=== PATIENT | female | born 1990 | race Caucasian/White ===

== ENCOUNTER 2017-12-14 08:47 | Emergency (ER) | END 2017-12-14 10:43 | disposition home or self-care (01) ==

== ENCOUNTER 2018-06-23 15:42 | Emergency (ER) | END 2018-06-23 20:02 | disposition home or self-care (01) ==

== ENCOUNTER 2018-11-02 13:51 | Inpatient (IN) | payer MEDICAID ==
[~2018-11-02] VITALS: Ht 152.4 cm; Wt 61.7 kg
[~2018-11-02 13:51] MED LIST: ACET500C5 PO; BACITUD TOP; CEPH-443 PO; CYCL10TA7 PO; NAPR-985 PO
[2018-11-02 13:54] VITALS: Ht 152.4 cm; Wt 61.7 kg
[2018-11-02 14:11] VITALS: BP 109/63; PULSE 75; RESP 18
[2018-11-02] MEDS: LACTATED RINGER'S 500 ML IV SCH ×2 (14:29→19:25)
[2018-11-02] MEDS ORDERED: TERBUTALINE 1 MG/ML INJ SC ONE ×2 (14:30→17:00)
--- NOTE | 2018-11-02 21:26 | HP ---
Date/Time of Note Date/Time of Note DATE: 11/02/18 TIME: 21:20 OB - History Hx of Present Free Text/Dictation 28 years old 001 with single intrauterine at 30 weeks and 6 days complaining of vaginal pressure and abdominal pain. She states good movement. She denies nausea vomiting, shortness of breath, visual changes, chest pain, headache, vaginal bleeding or leakage of fluid Chief Complaint: Vaginal pressure and abdominal pain : 2 Para: 1 Spontaneous : 0 Therapeutic : 0 Care: Good Care Ultrasounds: Normal mid trimester US Obstetrical Complications: None Medical Complications: None Past Family/Social History * Past Medical, Surgical, Family and Obstetric Histories reviewed from chart. OB Admission Exam Vital Signs Vital Signs Vital Signs Date Temp Pulse Resp B/P (MAP) Pulse Ox O2 O2 Flow FiO2 Time Delivery Rate 11/02/18 98.3 75 18 109/63 14:11 (78) Physical Exam HEENT: WNL Heart: Rhythm Normal Lungs: Clear Abdomen: WNL Extremities: Normal Reflexes: Normal Cervical Dilatation: None Effacement: 0% Station: -3 Membranes: Intact Heart Rate: 130's Accelerations: Accelerations Present Decelerations: No Decelerations Varibility: Moderate Contractions on Admission: < 5 Minutes Apart Intensity: Mild OB Assessment/Plan Other plan: 28-year-old 2 para 1001 with single intrauterine at 30 weeks and 6 days with threatened labor. fibronectin performed which is negative, cervical length is 4 cm. Patient received 500 ml IV fluid bolus then 150 mL/h. She received terbutaline sub cutaneous x2. Though her fibro nectin is negative with normal cervical length, as she still has palpable uterine contraction and uterine irritability every 2-3 minutes she was admitted. - FHR: No sign of metabolic acidosis- Category I - Continuous EFM, toco - CBC, blood type and screen - Urinalysis within normal limits - Magnesium sulfate per protocol - Betamethasone 12 mg daily for 2 doses - Please see the orders - Obtain records. - Patient discussed with Dr. Lee who has agreed with above plan Past Medical, Surgical, Family and Obstetric Histories reviewed which are unremarkable JAIME SALAZAR Nov 02, 2018 21:26
[2018-11-02] MEDS ORDERED: MAGNESIUM SULFATE 4 GM/100 ML 100 ML IV ONE (22:00)
[2018-11-02] MEDS ORDERED: ACETAMINOPHEN 325 MG TAB PO PRN (22:00)
[2018-11-02] MEDS: BETAMET NA PHOS/AC(6 MG/ML) 2 ML INJ SYG IM SCH (23:16)
[2018-11-02] MEDS: MAGNESIUM SULFATE 20 GM/500 ML 500 ML IV SCH (23:49)
[2018-11-03] MEDS ORDERED: AL HYDROX/MG HYDROX/SIMETH 30 ML CUP PO PRN (00:30)
[2018-11-03] MEDS ORDERED: ONDANSETRON 4 MG INJ IV PRN (00:30)
--- NOTE | 2018-11-03 04:15 | TRIAGE ---
OB Triage Datetime Report Generated by CPN: 11/03/2018 04:15 Datetime: 11/03/2018 21:50 Stage of : Antepartum Datetime: 11/02/2018 23:31 Assessment Type: Admission Assessment Vaginal Bleeding: None Maternal Assessment Level of Consciousness: Fully Conscious DTR's/Clonus: DTRs 2+; No Clonus Headache: Denies Blurred Vision: No Respiratory Effort: Unlabored; Regular Rhythm; Equal Expansion Breath Sounds, Left: Clear and Equal Breath Sounds, Right: Clear and Equal Nausea/Vomiting: Denies RUQ Epigastric Pain: Denies Lower Extremities Edema: None Degree: None Upper Extremities Edema: None Degree: None Facial Edema: None Fall Risk Assessment History of Falling: (0) No Secondary Diagnosis: (0) No Ambulatory Aid: (0) Bedrest/Nurse Assist IV Therapy: (20) Yes Gait: (0) Normal/Bedrest/Immobile Mental Status: (0) Oriented to Own Ability Fall Score: 20 Fall Risk Score Definition: No Risk: No action required Labor Evaluation Frequency: 2-4 Duration (sec)2399: 40-60 Quality: Mild Pattern: Normal: <= 5 Contractions in 10 Minutes Resting Tone [place]: Relaxed Heart Rate FHR Baseline Rate: 140 Variability: Moderate 6-25 bpm Accelerations: 15X15 Decelerations: None Category: Category I Pain Assessment Pain Scale: 1 Pain Presence: Intermittent Pain Type: Cramping Pain Location: Abdomen Pain Goal: 2 Pain Assessment Comments: Membrane Status: Intact Datetime: 11/02/2018 22:25 Monitor Mode: External Quality: Mild Pattern: Normal: <= 5 Contractions in 10 Minutes Resting Tone [place]: Non Relaxed Heart Rate FHR Baseline Rate: 150 Monitor Mode: External US FHR Baseline Changes: No Baseline Change Variability: Moderate 6-25 bpm Accelerations: 15X15 Decelerations: None Category: Category I Datetime: 11/02/2018 22:00 Stage of : OB Triage Monitor Mode: External Quality: Mild Pattern: Normal: <= 5 Contractions in 10 Minutes Resting Tone [place]: Relaxed Heart Rate FHR Baseline Rate: 150 Monitor Mode: External US FHR Baseline Changes: No Baseline Change Variability: Moderate 6-25 bpm Accelerations: 15X15 Decelerations: None Category: Category I Pain Assessment Pain Scale: 1 Pain Presence: Intermittent Pain Type: Cramping Pain Location: Abdomen Datetime: 11/02/2018 21:58 Stage of : Antepartum Datetime: 11/02/2018 21:50 Stage of : Antepartum Labor Evaluation Frequency: 1.5-4.5 Monitor Mode: External Duration (sec)2399: 30-50 Quality: Mild Pattern: Normal: <= 5 Contractions in 10 Minutes Resting Tone [place]: Relaxed Heart Rate FHR Baseline Rate: 150 Monitor Mode: External US Variability: Moderate 6-25 bpm Accelerations: 15X15 Decelerations: None Category: Category I Datetime: 11/02/2018 21:36 Membrane Status: Intact Datetime: 11/02/2018 21:27 Vaginal Exam Dilatation (cms): 0.0 Effacement (%): 0 Station: -3 Exam By: HAILEE Vaginal Bleeding: None Cervix, Consistency: Moderate Cervix, Position: Midposition Datetime: 11/02/2018 20:50 Labor Evaluation Frequency: 1.5-4.5 Monitor Mode: External Duration (sec)2399: 30-50 Quality: Mild Pattern: Normal: <= 5 Contractions in 10 Minutes Resting Tone [place]: Relaxed Heart Rate FHR Baseline Rate: 150 Monitor Mode: External US Variability: Moderate 6-25 bpm Accelerations: 15X15 Decelerations: None Category: Category I Datetime: 11/02/2018 19:50 Labor Evaluation Frequency: 2-5 Monitor Mode: External Duration (sec)2399: 30-50 Quality: Mild Pattern: Normal: <= 5 Contractions in 10 Minutes Resting Tone [place]: Relaxed Heart Rate FHR Baseline Rate: 145 Monitor Mode: External US Variability: Moderate 6-25 bpm Accelerations: 15X15 Decelerations: None Category: Category I Pain Assessment Pain Scale: 0 Pain Presence: None/Denies Pain Type: N/A Pain Goal: 3 Pain Relief Measures: Comfort Measures Datetime: 11/02/2018 18:53 Labor Evaluation Frequency: 4-5 Monitor Mode: External Duration (sec)2399: 30-40 Pattern: Normal: <= 5 Contractions in 10 Minutes Resting Tone [place]: Relaxed Heart Rate FHR Baseline Rate: 145 Monitor Mode: External US Variability: Moderate 6-25 bpm Accelerations: 10X10 Decelerations: None Category: Category I Pain Assessment Pain Scale: 0 Pain Presence: None/Denies Pain Type: N/A Pain Goal: 3 Pain Relief Measures: Comfort Measures Datetime: 11/02/2018 17:51 Labor Evaluation Frequency: 0 Monitor Mode: External Pattern: Normal: <= 5 Contractions in 10 Minutes Resting Tone [place]: Relaxed Heart Rate FHR Baseline Rate: 150 Monitor Mode: External US Variability: Moderate 6-25 bpm Decelerations: None Category: Category I Pain Assessment Pain Scale: 0 Pain Presence: None/Denies Pain Type: N/A Pain Relief Measures: Comfort Measures Datetime: 11/02/2018 16:52 Labor Evaluation Frequency: 0 Monitor Mode: External Pattern: Normal: <= 5 Contractions in 10 Minutes Resting Tone [place]: Relaxed Heart Rate FHR Baseline Rate: 150 Monitor Mode: External US Variability: Moderate 6-25 bpm Accelerations: None Decelerations: None Category: Category I Pain Assessment Pain Scale: 0 Pain Presence: None/Denies Pain Type: N/A Pain Goal: 3 Pain Relief Measures: Comfort Measures Datetime: 11/02/2018 16:27 Stage of : OB Triage Datetime: 11/02/2018 16:25 Vaginal Exam Dilatation (cms): 0.0 Station: -3 Exam By: S MARIPOSA Vaginal Bleeding: None Cervix, Consistency: Soft Cervix, Position: Posterior Presentation 'A': Cephalic Datetime: 11/02/2018 15:56 Labor Evaluation Frequency: X1 Monitor Mode: External Duration (sec)2399: 30 Quality: Mild Pattern: Normal: <= 5 Contractions in 10 Minutes Resting Tone [place]: Relaxed Heart Rate FHR Baseline Rate: 135 Monitor Mode: External US Variability: Moderate 6-25 bpm Accelerations: 10X10 Decelerations: None Category: Category I Pain Assessment Pain Scale: 0 Pain Presence: None/Denies Pain Type: N/A Pain Goal: 3 Pain Relief Measures: Comfort Measures Datetime: 11/02/2018 14:58 Labor Evaluation Frequency: 0 Monitor Mode: External Quality: Mild Pattern: Normal: <= 5 Contractions in 10 Minutes Resting Tone [place]: Relaxed Heart Rate FHR Baseline Rate: 135 Monitor Mode: External US Variability: Moderate 6-25 bpm Accelerations: 10X10 Decelerations: None Category: Category I Pain Assessment Pain Scale: 0 Pain Presence: None/Denies Pain Type: N/A Pain Goal: 1 Pain Relief Measures: Comfort Measures Datetime: 11/02/2018 14:14 Stage of : OB Triage Datetime: 11/02/2018 14:03 Stage of : OB Triage Assessment Type: Triage Maternal Assessment Level of Consciousness: Fully Conscious DTR's/Clonus: DTRs 2+; No Clonus Headache: Denies Blurred Vision: No Respiratory Effort: Unlabored; Regular Rhythm; Equal Expansion Breath Sounds, Left: Clear and Equal Breath Sounds, Right: Clear and Equal Nausea/Vomiting: Denies RUQ Epigastric Pain: Denies Facial Edema: None Temperature Route: Axillary Fall Risk Assessment History of Falling: (0) No Secondary Diagnosis: (0) No Ambulatory Aid: (0) Bedrest/Nurse Assist IV Therapy: (0) No Gait: (0) Normal/Bedrest/Immobile Mental Status: (0) Oriented to Own Ability Fall Score: 0 Fall Risk Score Definition: No Risk: No action required Labor Evaluation Frequency: 2-3 Monitor Mode: External Duration (sec)2399: 40-50 Quality: Mild Pattern: Normal: <= 5 Contractions in 10 Minutes Resting Tone [place]: Relaxed Heart Rate FHR Baseline Rate: 145 Monitor Mode: External US Variability: Moderate 6-25 bpm Decelerations: None Category: Category I Pain Assessment Pain Scale: 1 Pain Presence: Intermittent Pain Type: Cramping Pain Location: Perineum; Right Groin Pain Goal: 3 Pain Relief Measures: Comfort Measures Datetime: 11/02/2018 14:01 EGA: 30.6 Arrived By: Ambulatory Datetime: 11/02/2018 14:00 Time of Arrival: 11/02/2018 13:47 Arrived By: Ambulatory Arrived From: Home Chief Complaint: C/O LOWER PERINEAL PAIN/PRESSURE X 5 DAYS, DENIES BLEEDING OR LEAKING OF FLUID Movement: Present Contractions: Occasional Contractions: IRREG Rupture of Membranes: Denies Vaginal Bleeding: None Vaginal Discharge: Denies Recent Sexual Intercouse: Denies Abdominal Trauma: Not Applicable Patient Complaints: Contractions; Cramping Time Provider Notified: 11/02/2018 14:14 Provider Notified: MARTIN Initial Plan: MONITOR, U/A C_s, FFN, VE, U/S FOR CL, BPP, EFW, TERB
[2018-11-03] MEDS: LACTATED RINGER'S 1,000 ML IV SCH ×2 (05:18→18:26)
[2018-11-03] MEDS: PRENATAL VITAMIN PO SCH (08:50)
[2018-11-03] MEDS: FERROUS SULFATE (EC) 325 MG TAB PO SCH (08:50)
[2018-11-03] MEDS: MAGNESIUM SULFATE 20 GM/500 ML 500 ML IV SCH ×3 (10:37→21:38)
--- NOTE | 2018-11-03 15:05 | PN ---
Date/Time of Note Date/Time of Note DATE: 11/03/18 TIME: 14:57 OB Subjective Subjective Subjective Date of admission: 11/02/18 Admission day# 2 Patient seen and examined. She states good movement. She denies nausea, vomiting, shortness of breath, chest pain, headache, visual changes, vaginal b leeding or LOF. OB Objective Objective Objective Vital Signs Date Temp Pulse Resp B/P (MAP) Pulse Ox O2 O2 Flow FiO2 Time Delivery Rate 11/02/18 98.3 75 18 109/63 14:11 (78) General: Patient appears well, alert and oriented, NAD, appropriate mood and affect ABD: gravid, soft, non-tender. Back: No CVA tenderness (B/L) LE: Mild edema. No clubbing, cyanosis, edema, thigh or calf tenderness bilaterally FHT: 135 bpm , moderate variability with acceleration, no deceleration-category I Contractions: Occasional Laboratory Tests Test 11/02/18 13:32 11/02/18 14:25 11/02/18 15:00 11/03/18 05:45 Urine Color YELLOW Urine Clarity CLOUDY Urine pH 8.0 Urine Specific 1.008 [place] Urine Ketones NEGATIVE mg/dL Urine Nitrite NEGATIVE mg/dL Urine Bilirubin NEGATIVE mg/dL Urine NEGATIVE mg/dL Urobilinogen Urine Leukocyte NEGATIVE Quentin/ul Esterase Urine 1 /HPF Microscopic RBC Urine 0 /HPF Microscopic WBC Urine Amorphous FEW /HPF Crystals Urine Bacteria FEW /HPF Urine Hemoglobin NEGATIVE mg/dL Urine Glucose NEGATIVE mg/dL Urine Total NEGATIVE mg/dl Protein NEGATIVE Fibronectin White Blood 8.5 10^3/ul Count Red Blood Count 3.86 10^6/ul Hemoglobin 11.4 g/dl Hematocrit 34.9 % Mean Corpuscular 90.4 fl Volume Mean Corpuscular 29.5 pg Hemoglobin Mean Corpuscular 32.7 g/dl Hemoglobin Rebecca nt Red Cell 12.6 % Distribution Width Platelet Count 237 10^3/UL Mean Platelet 8.8 fl Volume Immature 1.800 % Granulocytes % Neutrophils % 67.6 % Lymphocytes % 23.1 % Monocytes % 6.2 % Eosinophils % 0.6 % Basophils % 0.7 % Nucleated Red 0.0 /100WBC Blood Cells % Immature 0.150 10^3/ul Granulocytes # Neutrophils # 5.8 10^3/ul Lymphocytes # 2.0 10^3/ul Monocytes # 0.5 10^3/ul Eosinophils # 0.1 10^3/ul Basophils # 0.1 10^3/ul Nucleated Red 0.0 10^3/ul Blood Cells # Prothrombin Time 12.4 Sec Prothrombin Time 1.0 Ratio INR 0.91 International Normalized Ratio Activated 27.5 Sec Partial Thrombop last Time Sodium Level 136 mmol/L Potassium Level 2.7 mmol/L Chloride Level 101 mmol/L Carbon Dioxide 25 mmol/L Level Anion Gap 10 Blood Urea 5 mg/dl Nitrogen Creatinine 0.35 mg/dl Est Glomerular > 60 mL/min Filtrat Rate mL/min Glucose Level 84 mg/dl Calcium Level 9.3 mg/dl Total Bilirubin 0.2 mg/dl Direct Bilirubin 0.00 mg/dl Indirect 0.2 mg/dl Bilirubin Aspartate Amino 22 IU/L Transf (AST/SGOT ) Alanine 26 IU/L Aminotransferase (ALT/SGPT) Alkaline 77 IU/L Phosphatase Total Protein 6.7 g/dl Albumin 3.7 g/dl Globulin 3.00 g/dl Albumin/Globulin 1.23 Ratio Magnesium Level 5.2 mg/dl Test 11/03/18 07:41 11/03/18 12:01 Lab Scanned REFERENCE Report LAB [id number] Magnesium Level 5.1 mg/dl OB Assessment/Plan Other plan: 28-year-old 2 para 1001 with single intrauterine at 30 weeks and 6 days with threatened labor. - FHR: No sign of metabolic acidosis- Category I - Continuous EFM, toco - She has occasional uterine contraction - fibronectin: Negative - Cervical length is 4 cm - Urinalysis within normal limit, U/C is pending - Magnesium sulfate per protocol - Betamethasone 12 mg daily for 2 doses - Please see the orders - Obtain records - Neonatology and perinatology consult JAIME SALAZAR Nov 03, 2018 15:05
[2018-11-03] MEDS ORDERED: FER325 PO (19:57)
[2018-11-03] MEDS ORDERED: PREN-99 PO (19:57)
[2018-11-03] MEDS: LACTATED RINGER'S 500 ML IV SCH ×2 (19:58→19:59)
[2018-11-03] MEDS: PHENAZOPYRIDINE 200 MG TAB PO SCH (21:31)
[2018-11-03] MEDS ORDERED: POTASSIUM CHLORIDE (SR) 20 MEQ TAB PO ONE (23:04)
[2018-11-03] MEDS: BETAMET NA PHOS/AC(6 MG/ML) 2 ML INJ SYG IM SCH (23:10)
[2018-11-03] MEDS: POTASSIUM CHLORIDE 100 ML IVPB SCH (23:46)
[2018-11-04] MEDS: POTASSIUM CHLORIDE 100 ML IVPB SCH (04:44)
[2018-11-04] MEDS: LACTATED RINGER'S 1,000 ML IV SCH ×3 (04:57→19:08)
[2018-11-04] MEDS: FERROUS SULFATE (EC) 325 MG TAB PO SCH (09:02)
[2018-11-04] MEDS: PRENATAL VITAMIN PO SCH (09:02)
[2018-11-04] MEDS: PHENAZOPYRIDINE 200 MG TAB PO SCH ×2 (09:12→14:35)
[2018-11-04] MEDS: MAGNESIUM SULFATE 20 GM/500 ML 500 ML IV SCH (17:00)
[2018-11-05] MEDS: PHENAZOPYRIDINE 200 MG TAB PO SCH ×3 (00:18→13:35)
[2018-11-05] MEDS: LACTATED RINGER'S 1,000 ML IV SCH ×2 (02:59→10:56)
[2018-11-05] MEDS: PRENATAL VITAMIN PO SCH (08:53)
[2018-11-05] MEDS: FERROUS SULFATE (EC) 325 MG TAB PO SCH (08:53)
--- NOTE | 2018-11-05 14:53 | DS ---
Date/Time of Note Date/Time of Note DATE: 11/05/18 TIME: 14:49 Obstetrical Discharge Record Final Diagnosis Final Diagnosis: not delivered Other Final Diagnosis PTL 31w2d Complications Labor Augmentation: No Induction: No Tocolytics: Magnesium Sulfate, Other (BMZx2) Rupture of Membranes: No Condition on Discharge Physical Assessment Last Vitals: VSS afebrile Voiding: Yes (urine culture neg ) Bowel Movement: Yes Breast: Soft, non-tender Fundus: Other Calf Tenderness: No Patient Condition: Stable MIKKI BECERRIL MD Nov 05, 2018 14:53
--- NOTE | 2018-11-05 14:55 | PD.PPDC ---
[employer] Discharge Instruction Diagnosis [id number] Final Diagnosis: Mgdew2v IUP 31w2d Condition [id number] Patient Condition: [id number] Stable Activity/Restrictions [id number] Activity: [id number] Bedrest [id number] Restrictions: [id number] No Exercising No Lifting Nothing in the Vagina No [place] No Tampons, douche Follow-up Follow-up with Physician: 1, Week/Weeks Return to clinic for [id number] [employer] Instructions: [id number] Fever greater than 101 Comment: routine labor instructions MIKKI BECERRIL MD Nov 05, 2018 14:55
== END 2018-11-05 14:45 | disposition home or self-care (01) | DRG 833 ==
LOC: OBT 13:51 → L-D 13:51 → OBT 21:35
PROVIDERS: ADMIT Obstetrics & Gynecology; ATTEND Obstetrics & Gynecology
DX: O47.03 False labor before 37 completed weeks of gestation, third trimester (principal); Z3A.30 30 weeks gestation of pregnancy
CPT/HCPCS: 36415; 76815; 76817; 76818; 80053; 81001; 82731; 83735; 85025; 85610; 85730; 86592; 86850; 86900; 86901; 87086; 96360; 96361; 96372; G0463; J0702; J3105; J3475; J3480; J7120

== ENCOUNTER 2018-12-30 06:35 | Inpatient (IN) | payer MEDICAID ==
[2018-12-30] VITALS (7 sets, daily range): BP systolic 105–118; BP diastolic 50–68; PULSE 68–91; RESP 18; Ht 151.1 cm; Wt 67.3 kg
[~2018-12-30] VITALS: Ht 151.1 cm; Wt 67.3 kg
[~2018-12-30 06:35] MED LIST changes: -ACET500C5 PO; -BACITUD TOP; -CEPH-443 PO; -CYCL10TA7 PO; +FER325 PO; -NAPR-985 PO; +PREN-99 PO
[2018-12-30] MEDS ORDERED: LACTATED RINGER'S 1,000 ML IV SCH ×2 (07:20→07:40)
--- NOTE | 2018-12-30 07:27 | TRIAGE ---
OB Triage Datetime Report Generated by CPN: 12/30/2018 07:26 Datetime: 12/30/2018 07:25 Stage of : OB Triage Assessment Type: Triage Maternal Assessment Level of Consciousness: Fully Conscious DTR's/Clonus: DTRs 2+; No Clonus Headache: Denies Blurred Vision: No Respiratory Effort: Unlabored; Regular Rhythm; Equal Expansion Breath Sounds, Left: Clear and Equal Breath Sounds, Right: Clear and Equal Nausea/Vomiting: Denies RUQ Epigastric Pain: Denies Facial Edema: None Fall Risk Assessment History of Falling: (0) No Secondary Diagnosis: (0) No Ambulatory Aid: (0) Bedrest/Nurse Assist IV Therapy: (0) No Gait: (0) Normal/Bedrest/Immobile Mental Status: (0) Oriented to Own Ability Datetime: 12/30/2018 07:24 Time of Arrival: 12/30/2018 06:40 EGA: 39.1 Arrived By: Ambulatory Arrived From: Home Chief Complaint: UC'S Movement: Present Contractions: Regular Time Contractions Began: 12/30/2018 02:00 Rupture of Membranes: Denies Vaginal Bleeding: None Vaginal Discharge: Denies Recent Sexual Intercouse: Denies Abdominal Trauma: Not Applicable Patient Complaints: Contractions Time Provider Notified: 12/30/2018 07:25 Provider Notified: DR. SALAZAR Initial Plan: VE Datetime: 11/05/2018 14:45 Stage of : Antepartum Datetime: 11/05/2018 14:26 Time Provider Notified: 12/30/2018 07:24 Provider Notified: DR. SALAZAR Datetime: 11/05/2018 14:00 Stage of : Antepartum Labor Evaluation Frequency: 0 Monitor Mode: External Resting Tone [place] In[place]: Relaxed Contraction Comments: abdomen soft on palpation, pt denies uterine contraction pain at this time Heart Rate FHR Baseline Rate: 145 Monitor Mode: External US Variability: Moderate 6-25 bpm Accelerations: 15X15 Decelerations: None Category: Category I Pain Assessment Pain Scale: 0 Pain Presence: None/Denies Pain Type: N/A Datetime: 11/05/2018 13:00 Stage of : Antepartum Labor Evaluation Frequency: occasional Monitor Mode: External Duration (sec)2399: 50-80 Quality: Mild Resting Tone [place]: Relaxed Heart Rate FHR Baseline Rate: 145 Monitor Mode: External US Variability: Moderate 6-25 bpm Accelerations: 15X15 Decelerations: None Category: Category I Pain Assessment Pain Scale: 0 Pain Presence: None/Denies Pain Type: N/A Vaginal Exam Membrane Status: Intact Datetime: 11/05/2018 12:30 Comments: monitors applied Datetime: 11/05/2018 11:53 Stage of : Antepartum Labor Evaluation Frequency: x 1 Monitor Mode: External Duration (sec)2399: 90 Quality: Mild Resting Tone [place]: Relaxed Heart Rate FHR Baseline Rate: 145 Monitor Mode: External US Variability: Moderate 6-25 bpm Accelerations: 15X15 Decelerations: None Category: Category I Pain Assessment Pain Scale: 0 Pain Presence: None/Denies Pain Type: N/A Vaginal Exam Membrane Status: Intact Datetime: 11/05/2018 11:48 Comments: position change Datetime: 11/05/2018 11:00 Stage of : Antepartum Labor Evaluation Frequency: x 1 Monitor Mode: External Duration (sec)2399: 60 Quality: Mild Resting Tone [place]: Relaxed Heart Rate FHR Baseline Rate: 145 Monitor Mode: External US Variability: Moderate 6-25 bpm Accelerations: 15X15 Decelerations: None Category: Category I Pain Assessment Pain Scale: 0 Pain Presence: None/Denies Pain Type: N/A Vaginal Exam Membrane Status: Intact Datetime: 11/05/2018 10:00 Stage of : Antepartum Labor Evaluation Frequency: 0 Monitor Mode: External Resting Tone [place]: Relaxed Heart Rate FHR Baseline Rate: 140 Monitor Mode: External US Variability: Moderate 6-25 bpm Accelerations: 15X15 Decelerations: None Category: Category I Pain Assessment Pain Scale: 0 Pain Presence: None/Denies Pain Type: N/A Vaginal Exam Membrane Status: Intact Datetime: 11/05/2018 09:00 Stage of : Antepartum Labor Evaluation Frequency: 0 Monitor Mode: External Resting Tone [place]: Relaxed Contraction Comments: abdomen soft on palpation Heart Rate FHR Baseline Rate: 140 Monitor Mode: External US Variability: Moderate 6-25 bpm Accelerations: 10X10 Decelerations: None Category: Category I Pain Assessment Pain Scale: 0 Pain Presence: None/Denies Pain Type: N/A Vaginal Exam Membrane Status: Intact Datetime: 11/05/2018 08:15 Assessment Type: Ongoing Assessment Maternal Assessment Level of Consciousness: Fully Conscious DTR's/Clonus: DTRs 2+; No Clonus Headache: Denies Blurred Vision: No Respiratory Effort: Unlabored; Regular Rhythm; Equal Expansion Breath Sounds, Left: Clear and Equal Breath Sounds, Right: Clear and Equal Nausea/Vomiting: Denies RUQ Epigastric Pain: Denies Degree: None Upper Extremities Edema: None Degree: None Facial Edema: None Fall Risk Assessment History of Falling: (0) No Secondary Diagnosis: (0) No Ambulatory Aid: (0) Bedrest/Nurse Assist IV Therapy: (0) No Gait: (0) Normal/Bedrest/Immobile Mental Status: (0) Oriented to Own Ability Fall Score: 0 Fall Risk Score Definition: No Risk: No action required Datetime: 11/05/2018 08:00 Stage of : Antepartum Maternal Assessment Level of Consciousness: Fully Conscious DTR's/Clonus: No Clonus Headache: Denies Blurred Vision: No Nausea/Vomiting: Denies RUQ Epigastric Pain: Denies Facial Edema: None Labor Evaluation Frequency: X 1 Monitor Mode: External Duration (sec)2399: 60 Quality: Mild Resting Tone [place]: Relaxed Heart Rate FHR Baseline Rate: 135 Monitor Mode: External US Variability: Moderate 6-25 bpm Accelerations: 10X10 Decelerations: None Category: Category I Pain Presence: None/Denies Pain Type: N/A Pain Assessment Comments: PT DENIES FEELING UTERINE CONTRACTIONS AT THIS TIME Vaginal Exam Membrane Status: Intact Datetime: 11/05/2018 07:37 Stage of : Antepartum Temperature Route: Oral Datetime: 11/05/2018 06:30 Labor Evaluation Frequency: 0 Monitor Mode: External Duration (sec)2399: DENIES Resting Tone [place] In[place]: Relaxed Heart Rate FHR Baseline Rate: 135 Monitor Mode: External US Variability: Moderate 6-25 bpm Accelerations: 15X15 Decelerations: None Category: Category I Datetime: 11/05/2018 05:29 Labor Evaluation Frequency: 0 Monitor Mode: External Duration (sec)2399: DENIES Resting Tone [place]: Relaxed Heart Rate FHR Baseline Rate: 125 Monitor Mode: External US Variability: Moderate 6-25 bpm Accelerations: 15X15 Decelerations: None Category: Category I Pain Presence: None/Denies Datetime: 11/05/2018 04:30 Labor Evaluation Frequency: 0 Monitor Mode: External Resting Tone [place]: Relaxed Heart Rate FHR Baseline Rate: 140 Variability: Moderate 6-25 bpm Comments: LOSS OF CONTACT AT TIMES, Pain Presence: None/Denies Datetime: 11/05/2018 03:30 Labor Evaluation Frequency: 0 Monitor Mode: External Resting Tone [place]: Relaxed Heart Rate FHR Baseline Rate: 135 Variability: Moderate 6-25 bpm Accelerations: 15X15 Pain Presence: None/Denies Datetime: 11/05/2018 02:30 Labor Evaluation Frequency: OCCASIONAL Monitor Mode: External Duration (sec)2399: 40 Quality: Mild Resting Tone [place]: Relaxed Heart Rate FHR Baseline Rate: 135 Monitor Mode: External US Variability: Moderate 6-25 bpm Accelerations: 15X15 Decelerations: None Category: Category I Pain Presence: None/Denies Datetime: 11/05/2018 01:30 Labor Evaluation Frequency: 0 Monitor Mode: External Resting Tone [place]: Relaxed Heart Rate FHR Baseline Rate: 135 Monitor Mode: External US Variability: Moderate 6-25 bpm Accelerations: 15X15 Decelerations: None Category: Category I Pain Presence: None/Denies Datetime: 11/05/2018 00:30 Labor Evaluation Frequency: X1 Monitor Mode: External Duration (sec)2399: 50 Quality: Mild Resting Tone [place]: Relaxed Heart Rate FHR Baseline Rate: 145 Monitor Mode: External US Variability: Moderate 6-25 bpm Accelerations: 15X15 Decelerations: None Category: Category I Pain Presence: None/Denies Datetime: 11/04/2018 23:30 Labor Evaluation Frequency: IRREGULAR Monitor Mode: External Duration (sec)2399: 40-60 Quality: Mild Resting Tone [place]: Relaxed Heart Rate FHR Baseline Rate: 140 Monitor Mode: External US Variability: Moderate 6-25 bpm Accelerations: 15X15 Decelerations: None Category: Category I Pain Presence: None/Denies Datetime: 11/04/2018 22:30 Labor Evaluation Frequency: X4 Monitor Mode: External Duration (sec)2399: 40-60 Quality: Mild Resting Tone [place]: Relaxed Heart Rate FHR Baseline Rate: 140 Monitor Mode: External US Variability: Moderate 6-25 bpm Accelerations: 15X15 Decelerations: None Category: Category I Pain Presence: None/Denies Datetime: 11/04/2018 21:30 Labor Evaluation Frequency: IRREGULAR Monitor Mode: External Duration (sec)2399: 40-90 Quality: Mild Resting Tone [place]: Relaxed Heart Rate FHR Baseline Rate: 145 Monitor Mode: External US Variability: Moderate 6-25 bpm Accelerations: 15X15 Decelerations: None Category: Category I Pain Presence: None/Denies Datetime: 11/04/2018 20:30 Labor Evaluation Frequency: OCCASIONAL Monitor Mode: External Duration (sec)2399: 40-60 Quality: Mild Resting Tone [place]: Relaxed Heart Rate FHR Baseline Rate: 145 Monitor Mode: External US Variability: Moderate 6-25 bpm Accelerations: 15X15 Decelerations: None Category: Category I Pain Assessment Pain Scale: 0 Pain Presence: None/Denies Pain Assessment Comments: PT IN HER RIGHT SIDE. Datetime: 11/04/2018 19:27 Stage of : Antepartum Assessment Type: Ongoing Assessment Maternal Assessment Level of Consciousness: Fully Conscious DTR's/Clonus: DTRs 2+; No Clonus Headache: Denies Blurred Vision: No Respiratory Effort: Unlabored; Regular Rhythm; Equal Expansion Breath Sounds, Left: Clear and Equal Breath Sounds, Right: Clear and Equal Nausea/Vomiting: Denies RUQ Epigastric Pain: Denies Lower Extremities Edema: None Degree: None Upper Extremities Edema: None Degree: None Facial Edema: None Temperature Route: Oral Fall Risk Assessment History of Falling: (0) No Secondary Diagnosis: (0) No Ambulatory Aid: (0) Bedrest/Nurse Assist IV Therapy: (0) No Gait: (0) Normal/Bedrest/Immobile Mental Status: (0) Oriented to Own Ability Fall Score: 0 Fall Risk Score Definition: No Risk: No action required Labor Evaluation Frequency: IRREGULAR Monitor Mode: External Duration (sec)2399: 40-60 Quality: Mild Resting Tone [place]: Relaxed Heart Rate FHR Baseline Rate: 135 Monitor Mode: External US Variability: Moderate 6-25 bpm Accelerations: 15X15 Decelerations: None Category: Category I Pain Assessment Pain Scale: 3 Pain Presence: Intermittent Pain Type: Contraction Pain Type: Pressure Pain Location: Abdomen Pain Goal: 3 Pain Relief Measures: Comfort Measures Datetime: 11/04/2018 18:25 Labor Evaluation Frequency: 10 Monitor Mode: External Duration (sec)2399: 60 Quality: Mild Contraction Comments: PT FEELING Heart Rate FHR Baseline Rate: 130 Monitor Mode: External US FHR Baseline Changes: No Baseline Change Variability: Moderate 6-25 bpm Accelerations: 15X15 Decelerations: None Category: Category I Datetime: 11/04/2018 17:00 Labor Evaluation Frequency: X2 Monitor Mode: External Pattern: Normal: <= 5 Contractions in 10 Minutes Resting Tone [place]: Relaxed Heart Rate FHR Baseline Rate: 130 Monitor Mode: External US FHR Baseline Changes: No Baseline Change Variability: Moderate 6-25 bpm Accelerations: 10X10 Decelerations: None Category: Category I Datetime: 11/04/2018 16:20 Stage of : Antepartum Temperature Route: Oral Pain Assessment Pain Scale: 0 Pain Presence: None/Denies Pain Goal: 0 Datetime: 11/04/2018 16:00 Labor Evaluation Frequency: X2 Monitor Mode: External Quality: Mild Heart Rate FHR Baseline Rate: LOSS OF INFORMATION Datetime: 11/04/2018 15:06 Labor Evaluation Frequency: X1 Monitor Mode: External Pattern: Normal: <= 5 Contractions in 10 Minutes Resting Tone [place]: Relaxed Heart Rate FHR Baseline Rate: 130 Monitor Mode: External US FHR Baseline Changes: No Baseline Change Variability: Moderate 6-25 bpm Accelerations: 10X10 Decelerations: None Category: Category I Datetime: 11/04/2018 14:39 Labor Evaluation Frequency: X3 Monitor Mode: External Pattern: Normal: <= 5 Contractions in 10 Minutes Resting Tone [place]: Relaxed Heart Rate FHR Baseline Rate: 140 Monitor Mode: External US FHR Baseline Changes: No Baseline Change Variability: Moderate 6-25 bpm Accelerations: 15X15 Decelerations: None Category: Category I Datetime: 11/04/2018 14:38 Stage of : Antepartum Datetime: 11/04/2018 13:30 Labor Evaluation Frequency: X4 Monitor Mode: External Quality: Mild Pattern: Normal: <= 5 Contractions in 10 Minutes Resting Tone [place]: Relaxed Heart Rate FHR Baseline Rate: 130 Monitor Mode: External US FHR Baseline Changes: No Baseline Change Variability: Moderate 6-25 bpm Accelerations: 10X10 Decelerations: None Category: Category I Datetime: 11/04/2018 12:00 Labor Evaluation Frequency: x4 Monitor Mode: External Duration (sec)2399: 40-70 Quality: Mild Resting Tone [place]: Relaxed Contraction Comments: pt denies feeling UCs Heart Rate FHR Baseline Rate: 115 Monitor Mode: External US FHR Baseline Changes: No Baseline Change Variability: Moderate 6-25 bpm Accelerations: 15X15 Decelerations: None Category: Category I Datetime: 11/04/2018 11:32 Stage of : Antepartum Temperature Route: Oral Pain Assessment Pain Scale: 0 Pain Presence: None/Denies Pain Type: N/A Datetime: 11/04/2018 11:01 Labor Evaluation Frequency: x2 Monitor Mode: External Duration (sec)2399: 40-60 Quality: Mild Resting Tone [place]: Relaxed Heart Rate FHR Baseline Rate: 115 Monitor Mode: External US FHR Baseline Changes: No Baseline Change Variability: Moderate 6-25 bpm Accelerations: 15X15 Decelerations: None Category: Category I Datetime: 11/04/2018 10:01 Labor Evaluation Frequency: x2 Monitor Mode: External Duration (sec)2399: 40-60 Quality: Mild Resting Tone [place]: Relaxed Heart Rate FHR Baseline Rate: 115 Monitor Mode: External US FHR Baseline Changes: No Baseline Change Variability: Moderate 6-25 bpm Accelerations: 15X15 Decelerations: None Category: Category I Datetime: 11/04/2018 08:59 Labor Evaluation Frequency: x4 Monitor Mode: External Duration (sec)2399: 50-70 Quality: Mild Resting Tone [place]: Relaxed Contraction Comments: pt denies feeling UCs Heart Rate FHR Baseline Rate: 120 Monitor Mode: External US FHR Baseline Changes: No Baseline Change Variability: Moderate 6-25 bpm Accelerations: 15X15 Decelerations: Early; Variable Category: Category II Datetime: 11/04/2018 07:58 Labor Evaluation Frequency: none Monitor Mode: External Resting Tone [place]: Relaxed Contraction Comments: uterine irritability noted. Pt denies having UCs Heart Rate FHR Baseline Rate: 120 Monitor Mode: External US FHR Baseline Changes: No Baseline Change Variability: Moderate 6-25 bpm Accelerations: 15X15 Decelerations: None Category: Category I Datetime: 11/04/2018 07:55 Assessment Type: Ongoing Assessment Maternal Assessment Level of Consciousness: Fully Conscious DTR's/Clonus: DTRs 2+; No Clonus Headache: Denies Blurred Vision: No Respiratory Effort: Unlabored; Regular Rhythm; Equal Expansion Breath Sounds, Left: Clear and Equal Breath Sounds, Right: Clear and Equal Nausea/Vomiting: Denies RUQ Epigastric Pain: Denies Lower Extremities Edema: None Degree: None Upper Extremities Edema: None Degree: None Facial Edema: None Fall Risk Assessment History of Falling: (0) No Secondary Diagnosis: (0) No Ambulatory Aid: (0) Bedrest/Nurse Assist IV Therapy: (20) Yes Gait: (0) Normal/Bedrest/Immobile Mental Status: (0) Oriented to Own Ability Fall Score: 20 Fall Risk Score Definition: No Risk: No action required Datetime: 11/04/2018 07:47 Stage of : Antepartum Temperature Route: Oral Pain Assessment Pain Scale: 0 Pain Presence: None/Denies Pain Type: N/A Datetime: 11/04/2018 07:00 Labor Evaluation Frequency: x1 Monitor Mode: External Duration (sec)2399: 140 Quality: Mild Pattern: Normal: <= 5 Contractions in 10 Minutes Resting Tone [place]: Relaxed Heart Rate FHR Baseline Rate: 120 Monitor Mode: External US Variability: Moderate 6-25 bpm Accelerations: 15X15 Decelerations: None Category: Category I Datetime: 11/04/2018 06:00 Labor Evaluation Frequency: x2 Monitor Mode: External Duration (sec)2399: 40-50 Quality: Mild Pattern: Normal: <= 5 Contractions in 10 Minutes Resting Tone [place]: Relaxed Heart Rate FHR Baseline Rate: 120 Monitor Mode: External US Variability: Moderate 6-25 bpm Accelerations: 15X15 Decelerations: None Category: Category I Datetime: 11/04/2018 05:32 Maternal Assessment Level of Consciousness: Fully Conscious DTR's/Clonus: DTRs 2+; No Clonus Headache: Denies Breath Sounds, Left: Clear and Equal Breath Sounds, Right: Clear and Equal Nausea/Vomiting: Denies RUQ Epigastric Pain: Denies Datetime: 11/04/2018 05:00 Monitor Mode: External Contraction Comments: none Heart Rate FHR Baseline Rate: 115 Monitor Mode: External US Variability: Moderate 6-25 bpm Accelerations: 15X15 Decelerations: None Category: Category I Datetime: 11/04/2018 04:56 Monitor Mode: External Monitor Mode: External US Datetime: 11/04/2018 04:45 Monitor Mode: External US Datetime: 11/04/2018 04:42 Monitor Mode: External US Datetime: 11/04/2018 04:32 Temperature Route: Oral Pain Assessment Pain Scale: 0 Pain Presence: None/Denies Pain Type: N/A Datetime: 11/04/2018 04:00 Labor Evaluation Frequency: x1 Monitor Mode: External Duration (sec)2399: 80 Quality: Mild Pattern: Normal: <= 5 Contractions in 10 Minutes Resting Tone [place]: Relaxed Heart Rate FHR Baseline Rate: 115 Monitor Mode: External US Variability: Moderate 6-25 bpm Accelerations: 15X15 Decelerations: None Category: Category I Datetime: 11/04/2018 03:32 Maternal Assessment Level of Consciousness: Fully Conscious DTR's/Clonus: DTRs 2+; No Clonus Headache: Denies Breath Sounds, Left: Clear and Equal Breath Sounds, Right: Clear and Equal Nausea/Vomiting: Denies RUQ Epigastric Pain: Denies Datetime: 11/04/2018 03:00 Labor Evaluation Frequency: x3 Monitor Mode: External Duration (sec)2399: 40-80 Quality: Mild Pattern: Normal: <= 5 Contractions in 10 Minutes Resting Tone [place]: Relaxed Heart Rate FHR Baseline Rate: 120 Monitor Mode: External US Variability: Moderate 6-25 bpm Accelerations: 15X15 Decelerations: None Category: Category I Datetime: 11/04/2018 02:40 Monitor Mode: External Monitor Mode: External US Datetime: 11/04/2018 02:00 Labor Evaluation Frequency: x1 Monitor Mode: External Duration (sec)2399: 80 Quality: Mild Pattern: Normal: <= 5 Contractions in 10 Minutes Resting Tone [place]: Relaxed Heart Rate FHR Baseline Rate: 120 Monitor Mode: External US Variability: Moderate 6-25 bpm Accelerations: 15X15 Decelerations: None Category: Category I Datetime: 11/04/2018 01:39 Maternal Assessment Level of Consciousness: Fully Conscious DTR's/Clonus: DTRs 2+; No Clonus Headache: Denies Breath Sounds, Left: Clear and Equal Breath Sounds, Right: Clear and Equal Nausea/Vomiting: Denies RUQ Epigastric Pain: Denies Datetime: 11/04/2018 01:00 Labor Evaluation Frequency: x3 Monitor Mode: External Duration (sec)2399: 70-80 Quality: Mild Pattern: Normal: <= 5 Contractions in 10 Minutes Resting Tone [place]: Relaxed Heart Rate FHR Baseline Rate: 120 Monitor Mode: External US Variability: Moderate 6-25 bpm Accelerations: 15X15 Decelerations: None Category: Category I Datetime: 11/04/2018 00:32 Temperature Route: Oral Datetime: 11/04/2018 00:03 Pain Type: Cramping Datetime: 11/04/2018 00:00 Labor Evaluation Frequency: x1 Monitor Mode: External Duration (sec)2399: 90 Quality: Mild Pattern: Normal: <= 5 Contractions in 10 Minutes Resting Tone [place]: Relaxed Heart Rate FHR Baseline Rate: 125 Monitor Mode: External US Variability: Moderate 6-25 bpm Accelerations: 15X15 Decelerations: None Category: Category I Datetime: 11/03/2018 23:40 Maternal Assessment Level of Consciousness: Fully Conscious DTR's/Clonus: DTRs 2+; No Clonus Headache: Denies Blurred Vision: No Respiratory Effort: Unlabored Breath Sounds, Left: Clear and Equal Breath Sounds, Right: Clear and Equal Datetime: 11/03/2018 23:17 Monitor Mode: External Monitor Mode: External US Datetime: 11/03/2018 23:06 Monitor Mode: External US Datetime: 11/03/2018 23:00 Labor Evaluation Frequency: x1 Monitor Mode: External Duration (sec)2399: 80 Quality: Mild Pattern: Normal: <= 5 Contractions in 10 Minutes Resting Tone [place]: Relaxed Heart Rate FHR Baseline Rate: 120 Monitor Mode: External US Variability: Moderate 6-25 bpm Accelerations: 15X15 Decelerations: None Category: Category I Datetime: 11/03/2018 22:00 Labor Evaluation Frequency: x2 Monitor Mode: External Duration (sec)2399: 70-80 Quality: Moderate Pattern: Normal: <= 5 Contractions in 10 Minutes Resting Tone [place]: Relaxed Heart Rate FHR Baseline Rate: 125 Monitor Mode: External US Variability: Moderate 6-25 bpm Accelerations: 15X15 Decelerations: None Category: Category I Datetime: 11/03/2018 21:40 Maternal Assessment Level of Consciousness: Fully Conscious DTR's/Clonus: DTRs 2+; No Clonus Blurred Vision: No Monitor Mode: External Monitor Mode: External US Datetime: 11/03/2018 21:00 Labor Evaluation Frequency: x3 Monitor Mode: External Duration (sec)2399: 40-90 Quality: Mild Pattern: Normal: <= 5 Contractions in 10 Minutes Resting Tone [place]: Relaxed Heart Rate FHR Baseline Rate: 120 Monitor Mode: External US Variability: Moderate 6-25 bpm Accelerations: 15X15 Decelerations: None Category: Category I Datetime: 11/03/2018 20:46 Monitor Mode: External US Datetime: 11/03/2018 20:40 Stage of : Antepartum Monitor Mode: External US Datetime: 11/03/2018 20:20 Monitor Mode: External Datetime: 11/03/2018 20:00 Labor Evaluation Frequency: X3 Monitor Mode: External Duration (sec)2399: 40-80 Quality: Mild Pattern: Normal: <= 5 Contractions in 10 Minutes Resting Tone [place]: Relaxed Heart Rate FHR Baseline Rate: 120 Monitor Mode: External US Variability: Moderate 6-25 bpm Accelerations: 15X15 Decelerations: None Category: Category I Datetime: 11/03/2018 19:47 Monitor Mode: External Datetime: 11/03/2018 19:40 Stage of : Antepartum Assessment Type: Ongoing Assessment Maternal Assessment Level of Consciousness: Fully Conscious DTR's/Clonus: DTRs 2+; No Clonus Headache: Generalized Blurred Vision: No Respiratory Effort: Unlabored; Regular Rhythm; Equal Expansion Breath Sounds, Left: Clear and Equal Breath Sounds, Right: Clear and Equal Nausea/Vomiting: Denies RUQ Epigastric Pain: Denies Lower Extremities Edema: None Degree: None Upper Extremities Edema: None Degree: None Facial Edema: None Temperature Route: Oral Fall Risk Assessment History of Falling: (0) No Secondary Diagnosis: (0) No Ambulatory Aid: (0) Bedrest/Nurse Assist IV Therapy: (20) Yes Gait: (0) Normal/Bedrest/Immobile Mental Status: (0) Oriented to Own Ability Fall Score: 20 Fall Risk Score Definition: No Risk: No action required Pain Assessment Pain Scale: 0 Pain Presence: None/Denies Pain Type: N/A Pain Goal: 3 Datetime: 11/03/2018 19:39 Monitor Mode: External Monitor Mode: External US Datetime: 11/03/2018 19:00 Stage of : Antepartum Labor Evaluation Frequency: x1 Monitor Mode: External Duration (sec)2399: 60 Quality: Mild Resting Tone [place]: Relaxed Heart Rate FHR Baseline Rate: 120 Monitor Mode: External US FHR Baseline Changes: No Baseline Change Variability: Moderate 6-25 bpm Accelerations: 15X15 Decelerations: None Pain Assessment Pain Scale: 0 Pain Presence: None/Denies Pain Type: N/A Datetime: 11/03/2018 18:00 Stage of : Antepartum Labor Evaluation Frequency: x2 Monitor Mode: External Duration (sec)2399: 60 Quality: Mild Resting Tone [place]: Relaxed Heart Rate FHR Baseline Rate: 120 Monitor Mode: External US FHR Baseline Changes: No Baseline Change Variability: Moderate 6-25 bpm Accelerations: 15X15 Decelerations: None Pain Assessment Pain Scale: 0 Pain Presence: None/Denies Pain Type: N/A Datetime: 11/03/2018 17:00 Stage of : Antepartum Labor Evaluation Frequency: x2 Monitor Mode: External Duration (sec)2399: 60 Quality: Mild Resting Tone [place]: Relaxed Heart Rate FHR Baseline Rate: 120 Monitor Mode: External US FHR Baseline Changes: No Baseline Change Variability: Moderate 6-25 bpm Accelerations: 15X15 Decelerations: None Pain Assessment Pain Scale: 0 Pain Presence: None/Denies Pain Type: N/A Pain Relief Measures: Comfort Measures Datetime: 11/03/2018 16:46 Stage of : Antepartum Datetime: 11/03/2018 16:42 Stage of : Antepartum Temperature Route: Oral Datetime: 11/03/2018 16:00 Stage of : Antepartum Labor Evaluation Frequency: x1 Monitor Mode: External Duration (sec)2399: 60 Quality: Mild Resting Tone [place]: Relaxed Heart Rate FHR Baseline Rate: 120 Monitor Mode: External US FHR Baseline Changes: No Baseline Change Variability: Moderate 6-25 bpm Accelerations: 15X15 Decelerations: None Pain Assessment Pain Scale: 0 Pain Presence: None/Denies Pain Type: N/A Datetime: 11/03/2018 15:00 Stage of : Antepartum Monitor Mode: External Duration (sec)2399: 60 Quality: Mild Resting Tone [place]: Relaxed Heart Rate FHR Baseline Rate: 120 Monitor Mode: External US FHR Baseline Changes: No Baseline Change Variability: Moderate 6-25 bpm Accelerations: 15X15 Decelerations: None Pain Assessment Pain Scale: 0 Pain Presence: None/Denies Pain Type: N/A Datetime: 11/03/2018 14:00 Stage of : Antepartum Labor Evaluation Frequency: x2 Monitor Mode: External Duration (sec)2399: 60 Quality: Mild Resting Tone [place]: Relaxed Heart Rate FHR Baseline Rate: 120 Monitor Mode: External US FHR Baseline Changes: No Baseline Change Variability: Moderate 6-25 bpm Accelerations: 15X15 Decelerations: None Pain Assessment Pain Scale: 0 Pain Presence: None/Denies Pain Type: N/A Datetime: 11/03/2018 13:00 Stage of : Antepartum Labor Evaluation Frequency: x2 Monitor Mode: External Duration (sec)2399: 60 Quality: Mild Resting Tone [place]: Relaxed Heart Rate FHR Baseline Rate: 120 Monitor Mode: External US FHR Baseline Changes: No Baseline Change Variability: Moderate 6-25 bpm Accelerations: 15X15 Decelerations: None Pain Assessment Pain Scale: 0 Pain Presence: None/Denies Pain Type: N/A Datetime: 11/03/2018 12:10 Stage of : Antepartum Temperature Route: Oral Pain Assessment Pain Scale: 0 Pain Presence: None/Denies Pain Type: N/A Datetime: 11/03/2018 12:00 Stage of : Antepartum Labor Evaluation Frequency: x2 Monitor Mode: External Duration (sec)2399: 60 Quality: Mild Resting Tone [place]: Relaxed Heart Rate FHR Baseline Rate: 120 Monitor Mode: External US FHR Baseline Changes: No Baseline Change Variability: Moderate 6-25 bpm Accelerations: 15X15 Decelerations: None Pain Assessment Pain Scale: 0 Pain Presence: None/Denies Pain Type: N/A Datetime: 11/03/2018 11:00 Stage of : Antepartum Labor Evaluation Frequency: x3 Monitor Mode: External Duration (sec)2399: 60 Quality: Mild Resting Tone [place]: Relaxed Heart Rate FHR Baseline Rate: 120 Monitor Mode: External US FHR Baseline Changes: No Baseline Change Variability: Moderate 6-25 bpm Accelerations: 15X15 Decelerations: None Pain Assessment Pain Scale: 0 Pain Presence: None/Denies Pain Type: N/A Datetime: 11/03/2018 10:00 Stage of : Antepartum Labor Evaluation Frequency: 6-10 Monitor Mode: External Duration (sec)2399: 50 Quality: Mild Resting Tone [place]: Relaxed Heart Rate FHR Baseline Rate: 120 Monitor Mode: External US FHR Baseline Changes: No Baseline Change Variability: Moderate 6-25 bpm Accelerations: 15X15 Decelerations: None Pain Assessment Pain Scale: 0 Pain Presence: None/Denies Pain Type: N/A Datetime: 11/03/2018 09:00 Labor Evaluation Frequency: x9 Monitor Mode: External Duration (sec)2399: 50 Quality: Mild Resting Tone [place]: Relaxed Heart Rate FHR Baseline Rate: 120 Monitor Mode: External US FHR Baseline Changes: No Baseline Change Variability: Moderate 6-25 bpm Accelerations: 15X15 Decelerations: None Pain Assessment Pain Scale: 0 Pain Presence: None/Denies Pain Type: N/A Datetime: 11/03/2018 08:11 Stage of : Antepartum Temperature Route: Oral Datetime: 11/03/2018 08:00 Labor Evaluation Frequency: x6 Monitor Mode: External Duration (sec)2399: 60-80 Quality: Mild Resting Tone [place]: Relaxed Heart Rate FHR Baseline Rate: 120 Monitor Mode: External US FHR Baseline Changes: No Baseline Change Variability: Moderate 6-25 bpm Accelerations: 15X15 Decelerations: None Pain Assessment Pain Scale: 0 Pain Presence: None/Denies Pain Type: N/A Datetime: 11/03/2018 07:35 Assessment Type: Ongoing Assessment Maternal Assessment Level of Consciousness: Fully Conscious DTR's/Clonus: DTRs 2+; No Clonus Headache: Denies Blurred Vision: No Respiratory Effort: Unlabored; Regular Rhythm; Equal Expansion Breath Sounds, Left: Clear and Equal Breath Sounds, Right: Clear and Equal Nausea/Vomiting: Denies RUQ Epigastric Pain: Denies Lower Extremities Edema: None Degree: None Upper Extremities Edema: None Degree: None Facial Edema: None Fall Risk Assessment History of Falling: (0) No Secondary Diagnosis: (0) No Ambulatory Aid: (0) Bedrest/Nurse Assist IV Therapy: (20) Yes Gait: (0) Normal/Bedrest/Immobile Mental Status: (0) Oriented to Own Ability Fall Score: 20 Fall Risk Score Definition: No Risk: No action required Datetime: 11/03/2018 06:57 Labor Evaluation Frequency: 3-6 Monitor Mode: External Quality: Mild Pattern: Normal: <= 5 Contractions in 10 Minutes Resting Tone [place]: Relaxed Heart Rate FHR Baseline Rate: 120 Monitor Mode: External US FHR Baseline Changes: No Baseline Change Variability: Moderate 6-25 bpm Accelerations: 15X15 Decelerations: None Category: Category I Pain Assessment Pain Scale: 0 Pain Presence: None/Denies Pain Type: N/A Datetime: 11/03/2018 06:00 Stage of : Antepartum Labor Evaluation Frequency: 1-6 Monitor Mode: External Duration (sec)2399: 40-80 Quality: Mild Pattern: Normal: <= 5 Contractions in 10 Minutes Resting Tone [place]: Relaxed Heart Rate FHR Baseline Rate: 125 Monitor Mode: External US FHR Baseline Changes: No Baseline Change Variability: Moderate 6-25 bpm Accelerations: 15X15 Decelerations: None Category: Category I Pain Presence: None/Denies Pain Type: N/A Datetime: 11/03/2018 05:00 Stage of : Antepartum Labor Evaluation Frequency: 1.5-10 Monitor Mode: External Duration (sec)2399: 50-90 Quality: Mild Pattern: Normal: <= 5 Contractions in 10 Minutes Resting Tone [place]: Relaxed Heart Rate FHR Baseline Rate: 120 Monitor Mode: External US FHR Baseline Changes: No Baseline Change Variability: Moderate 6-25 bpm Accelerations: 15X15 Decelerations: Variable Category: Category II Pain Presence: None/Denies Pain Type: N/A Datetime: 11/03/2018 03:57 Stage of : Antepartum Labor Evaluation Frequency: 2-8 Monitor Mode: External Quality: Mild Pattern: Normal: <= 5 Contractions in 10 Minutes Resting Tone [place]: Relaxed Heart Rate FHR Baseline Rate: 120 Monitor Mode: External US FHR Baseline Changes: No Baseline Change Variability: Moderate 6-25 bpm Accelerations: 15X15 Decelerations: None Category: Category I Pain Presence: None/Denies Pain Type: N/A Datetime: 11/03/2018 03:00 Stage of : Antepartum Maternal Assessment Level of Consciousness: Fully Conscious Headache: Denies Blurred Vision: No Nausea/Vomiting: Denies RUQ Epigastric Pain: Denies Facial Edema: None Monitor Mode: External Quality: Mild Pattern: Normal: <= 5 Contractions in 10 Minutes Resting Tone [place]: Relaxed Heart Rate FHR Baseline Rate: 130 Monitor Mode: External US FHR Baseline Changes: No Baseline Change Variability: Moderate 6-25 bpm Accelerations: 15X15 Decelerations: None Category: Category I Pain Assessment Pain Scale: 0 Pain Presence: None/Denies Pain Type: N/A Datetime: 11/03/2018 02:11 Stage of : Antepartum Labor Evaluation Frequency: 3-7 Labor Evaluation Frequency: Monitor Mode: External Duration (sec)2399: 40-70 Quality: Mild Pattern: Normal: <= 5 Contractions in 10 Minutes Resting Tone [place]: Relaxed Heart Rate FHR Baseline Rate: 130 Monitor Mode: External US FHR Baseline Changes: No Baseline Change Variability: Moderate 6-25 bpm Accelerations: 15X15 Decelerations: None Category: Category I Datetime: 11/03/2018 01:11 Pain Assessment Pain Scale: 0 Pain Presence: None/Denies Pain Type: N/A Datetime: 11/03/2018 00:55 Stage of : Antepartum Labor Evaluation Frequency: 3-10 Monitor Mode: External Duration (sec)2399: 30-50 Quality: Mild Pattern: Normal: <= 5 Contractions in 10 Minutes Resting Tone [place]: Relaxed Heart Rate FHR Baseline Rate: 135 Monitor Mode: External US FHR Baseline Changes: No Baseline Change Variability: Moderate 6-25 bpm Accelerations: 15X15 Decelerations: None Category: Category I Datetime: 11/02/2018 23:39 Stage of : Antepartum Monitor Mode: External Quality: Mild Pattern: Normal: <= 5 Contractions in 10 Minutes Resting Tone [place]: Relaxed Heart Rate FHR Baseline Rate: 140 Monitor Mode: External US FHR Baseline Changes: No Baseline Change Variability: Moderate 6-25 bpm Accelerations: 15X15 Decelerations: None Category: Category I Pain Assessment Pain Scale: 0 Pain Presence: None/Denies Pain Type: N/A Datetime: 11/02/2018 23:31 Fall Score: 20 Fall Risk Score Definition: No Risk: No action required Datetime: 11/02/2018 23:16 Stage of : Antepartum Quality: Mild Pattern: Normal: <= 5 Contractions in 10 Minutes Resting Tone [place]: Relaxed FHR Baseline Changes: No Baseline Change Variability: Moderate 6-25 bpm Accelerations: 15X15 Decelerations: None Category: Category II Datetime: 11/02/2018 14:03 Fall Score: 0 Fall Risk Score Definition: No Risk: No action required Datetime: 11/02/2018 14:01 EGA: 30.6
[2018-12-30] MEDS ORDERED: BUTORPHANOL 2 MG INJ IV PRN ×2 (07:30→08:00)
[2018-12-30] MEDS ORDERED: METHYLERGONOVINE 0.2 MG INJ IM PRN ×3 (07:30→09:30)
[2018-12-30] MEDS ORDERED: MISOPROSTOL 200 MCG TAB PR PRN ×3 (07:30→09:30)
[2018-12-30] MEDS ORDERED: CARBOPROST 250 MCG INJ IM PRN ×3 (07:30→09:30)
[2018-12-30] MEDS ORDERED: LIDOCAINE 1% (MPF) 30 ML INJ INJ PRN ×2 (07:30→08:00)
[2018-12-30] MEDS ORDERED: IBUPROFEN 600 MG TAB PO PRN ×2 (07:30→08:00)
[2018-12-30] MEDS ORDERED: OXYTOCIN 30 UNITS/LR 500 ML IV SCH ×4 (07:30→09:19)
[2018-12-30] MEDS ORDERED: OXYTOCIN 30 UNITS/LR 500 ML IV PRN ×3 (07:30→09:30)
[2018-12-30] MEDS: OXYTOCIN 30 UNITS/LR 500 ML IV SCH ×2 (09:11→10:12)
[2018-12-30] MEDS: LACTATED RINGER'S 1,000 ML IV* SCH ×2 (09:19→17:19)
--- NOTE | 2018-12-30 09:23 | HP ---
Date/Time of Note Date/Time of Note DATE: 12/30/18 TIME: 09:18 OB - History Hx of Present Free Text/Dictation 28-year-old 2 para 1 at 39 weeks and 1 day of gestation with estimated date of delivery January 05, 2019 She presents in active labor with regular contractions Patient reports positive movement, denies vaginal bleeding or leaking fluid GBS status is negative Estimated Due Date: Jan 05, 2019 : 2 Para: 1 Care: Good Care Past Family/Social History * Past Medical, Surgical, Family and Obstetric Histories reviewed from chart. OB Admission Exam Physical Exam HEENT: WNL Heart: Rhythm Normal Lungs: Clear, Equal Abdomen: WNL Extremities: Normal Reflexes: Normal Cervical Dilatation: 6cm Effacement: 75% Station: -2 Membranes: Intact Heart Rate: 140's Accelerations: Accelerations Present Decelerations: No Decelerations Varibility: Moderate Contractions on Admission: < 5 Minutes Apart Intensity: Moderate Last 72 hours Lab Results CBC & BMP 12/30/18 07:30 OB Assessment/Plan Reason for admission: active labor Induction Method: per Pitocin Protocol Other plan: Admit to labor and delivery Pain meds as needed Copies To: CC: JAIME SALAZAR ; RAYSHAWN SHAIKH MD Dec 30, 2018 09:23
[2018-12-30] MEDS ORDERED: ONDANSETRON 4 MG INJ IV PRN (09:30)
[2018-12-30] MEDS ORDERED: MAGNESIUM HYDROXIDE 30ML CUP PO PRN (09:30)
[2018-12-30] MEDS ORDERED: LANOLIN HPA 1 PKT TOP PRN (09:30)
[2018-12-30] MEDS ORDERED: SENNA/DOCUSATE NA (8.6MG/50MG) TAB PO PRN (09:30)
[2018-12-30] MEDS ORDERED: ACETAMINOPHEN 325 MG TAB PO PRN ×2 (09:30)
[2018-12-30] MEDS ORDERED: BENZOCAINE 20% 56 ML SPRAY TOP PRN (09:30)
[2018-12-30] MEDS ORDERED: WITCH HAZEL/GLYCERIN PAD PR PRN (09:30)
[2018-12-30] MEDS ORDERED: DIBUCAINE 1% 30 GM OINT TOP PRN (09:30)
--- NOTE | 2018-12-30 09:33 | LDN ---
Date/Time of Note Date/Time of Note DATE: 12/30/18 TIME: 09:31 Delivery Summary Term gestation Placenta Delivered: Spontaneously Meconium: none Episiotomy: No Anesthesia type: None Sponge & Needle done & correct: Yes All needle counts correct: Yes Any foreign bodies felt in the: No Infant Delivery Information Sex Sex: female Apgars 1 Minute: 8 5 Minute: 9 Suctioning Nose & mouth suctioned at [place]: Yes Delee suction performed: No Umbilical Cord Umbilical cord with: 3 Vessels Cord presentations: no nuchal cord Cord Blood was obtained: Yes Mother & Baby Disposition Disposition Baby's weight 7 pounds 9 ounces/ 3440 g Mom & Baby to Maternity; Good: Yes Baby to NICU: No Copies To: CC: JAIME SALAZAR ; RAYSHAWN SHAIKH MD Dec 30, 2018 09:33
[2018-12-31 03:30] VITALS: BP 113/56; PULSE 72; RESP 18
[2018-12-31] MEDS: IBUPROFEN 600 MG TAB PO PRN ×2 (06:00→17:14)
[2018-12-31 08:00] VITALS: BP 108/98; PULSE 100; RESP 18
[2018-12-31 15:35] VITALS: BP 110/59; PULSE 74; RESP 16
[2018-12-31 19:35] VITALS: BP 112/74; PULSE 76; RESP 18
--- NOTE | 2018-12-31 23:56 | PN ---
Date/Time of Note Date/Time of Note DATE: 12/31/18 TIME: 23:54 OB Subjective Subjective Subjective PPD# 1 Patient is doing well. She denies nausea, vomiting, shortness of breath, chest pain, headache. She has been ambulating without difficulty, tolerating regular diet. Pain is well controlled on current medications OB Objective Objective Objective VS - Last 72 Hours, by Label Date Temp Pulse Resp B/P (MAP) Pulse Ox O2 O2 Flow FiO2 Time Delivery Rate 12/31/18 97.9 76 18 112/74 Room Air 19:35 (87) 12/31/18 98.1 74 16 110/59 15:35 (76) 12/31/18 98.2 100 18 108/98 Room Air 08:00 (101) 12/31/18 97.9 72 18 113/56 Room Air 03:30 (75) 12/30/18 98.2 91 18 118/68 Room Air 23:30 (85) 12/30/18 98.4 82 18 113/60 Room Air 19:30 (77) 12/30/18 98.9 68 18 115/63 Room Air 16:00 (80) 12/30/18 98.9 81 105/64 Room Air 15:00 (78) 12/30/18 98.7 78 18 108/57 Room Air 11:38 (74) 12/30/18 89 18 110/50 Room Air 10:28 (70) 12/30/18 84 18 107/57 Room Air 10:00 (74) General: AAO X 3, comfortable, NAD, appropriate mood and affect. ABD: +BS. Soft, non-tender. Uterus 2 cm below umbilicus Flank: No CVA tenderness (B/L) LE: Mild edema. No clubbing, cyanosis, thigh or calf tenderness (B/L). Homans 'sign is negative Laboratory Tests Test 12/30/18 07:30 12/31/18 05:18 12/31/18 08:28 White Blood Count 11.3 10^3/ul 12.2 10^3/ul Red Blood Count 4.18 10^6/ul 3.77 10^6/ul Hemoglobin 12.0 g/dl 11.1 g/dl Hematocrit 36.7 % 33.6 % Mean Corpuscular Volume 87.8 fl 89.1 fl Mean Corpuscular 28.7 pg 29.4 pg Hemoglobin Mean Corpuscular 32.7 g/dl 33.0 g/dl Hemoglobin Concent Red Cell Distribution 13.3 % 13.2 % Width Platelet Count 249 10^3/UL 231 10^3/UL Mean Platelet Volume 8.9 fl 8.5 fl Immature Granulocytes % 1.400 % 1.600 % Neutrophils % 77.1 % 80.9 % Lymphocytes % 12.5 % 10.9 % Monocytes % 7.9 % 5.4 % Eosinophils % 0.7 % 0.7 % Basophils % 0.4 % 0.5 % Nucleated Red Blood Cells 0.0 /100WBC 0.0 /100WBC % Immature Granulocytes # 0.160 10^3/ul 0.190 10^3/ul Neutrophils # 8.7 10^3/ul 9.9 10^3/ul Lymphocytes # 1.4 10^3/ul 1.3 10^3/ul Monocytes # 0.9 10^3/ul 0.7 10^3/ul Eosinophils # 0.1 10^3/ul 0.1 10^3/ul Basophils # 0.0 10^3/ul 0.1 10^3/ul Nucleated Red Blood Cells 0.0 10^3/ul 0.0 10^3/ul # Prothrombin Time 12.1 Sec Prothrombin Time Ratio 0.9 INR International 0.89 Normalized Ratio Activated 27.8 Sec Partial Thromboplast Time Rapid Plasma Reagin NONREACTIVE Hepatitis B Surface NEGATIVE Antigen Lab Scanned Report REFERENCE LAB [id number] OB Assessment/Plan Other plan: 28-year-old s/p normal vaginal delivery at 39 weeks and 1 day. PPD#1 - AF, VSS at 39 - Contraception methods with R/B/A/FR discussed - Continue care - Discharge home tomorrow - Rx and instruction given - Follow up in 2 and 6 weeks at clinic JAIME SALAZAR Dec 31, 2018 23:56
[2019-01-01 03:50] VITALS: BP 111/59; PULSE 76; RESP 19
[2019-01-01] MEDS: IBUPROFEN 600 MG TAB PO PRN ×2 (04:06→17:59)
[2019-01-01 08:25] VITALS: BP 112/57; PULSE 71; RESP 18
--- NOTE | 2019-01-01 15:46 | DS ---
Date/Time of Note Date/Time of Note DATE: 01/01/19 TIME: 15:45 Obstetrical Discharge Record Final Diagnosis Final Diagnosis: Term delivered Vaginal Delivery Obstetrical Delivery: Spontaneous Complications Augmentation: No Induction: No Rupture of Membranes: No Condition on Discharge Physical Assessment Last Vitals: vss afebrile Voiding: Yes Bowel Movement: Yes Breast: Soft, non-tender Fundus: Firm Abdomen and Incision: n/a Episiotomy: n/a Calf Tenderness: No Patient Condition: Stable MIKKI BECERRIL MD Jan 01, 2019 15:46
[2019-01-01 16:14] VITALS: BP 125/72; PULSE 61; RESP 20
--- NOTE | 2019-01-02 18:37 | DELSUM ---
Delivery Summary A-C Datetime Report Generated by CPN: 01/02/2019 18:36 DELIVERY PERSONNEL Analog Circuit Designer: Veronica Armando MATERNAL INFORMATION Delivery Anesthesia: None Medications in Delivery: LR WITH 30 UNITS PITOCIN Delivery QBL (ml): 150 Placenta Cultured: No Maternal Complications: None Other Maternal Complications: IN LABOR LABOR SUMMARY EDC: 01/05/2019 00:00 No. Babies in Womb: 1 Attempted: No Labor Anesthesia: None LABOR INFORMATION Reason for Induction: Not Applicable Onset of Labor: 12/30/2018 06:00 Complete Dilatation: 12/30/2018 08:36 Oxytocin: N/A Group B Beta Strep: Negative Antibiotics # of Doses: 0 Steroids Given: None Reason Steroids Not Administered: Not Applicable MEMBRANES Membranes Rupture Method: Artificial Rupture of Membranes: 12/30/2018 08:43 Length of Rupture (hr): 0.23 Amniotic Fluid Color: Clear Amniotic Fluid Amount: Small Amniotic Fluid Odor: Normal STAGES OF LABOR Stage 1 hr: 2 Stage 1 min: 36 Stage 2 hr: 0 Stage 2 min: 21 Stage 3 hr: 0 Stage 3 min: 2 Total Time in Labor hr: 2 Total Time in Labor min: 59 VAGINAL DELIVERY Episiotomy: None Laceration Extension: N/A Laceration Type: None Laceration Repair: No Initial Vag Sponge Count: 10 Final Vag Sponge Count: 10 Initial Vag Sharps Count: 1 Final Vag Sharps Count: 1 Sponge Count Correct: Yes Sharps Count Correct: Yes BABY A INFORMATION Delivery Date/Time: 12/30/2018 08:57 Method of Delivery: Vaginal Born in Route : No : N/A Forceps: N/A Vacuum Extraction: N/A Shoulder Dystocia : No SHOULDER DYSTOCIA BABY A Infant Delivery Date/Time: 12/30/2018 08:57 PRESENTATION/POSITION BABY A Presentation: Cephalic Cephalic Presentation: Vertex Vertex Position: Left Occipital Anterior Breech Presentation: N/A PLACENTA INFORMATION BABY A Placenta Delivery Time : 12/30/2018 08:59 Placenta Method of Delivery: Spontaneous Placenta Status: Delivered SCORES BABY A Heart Rate 1 min: >100 bpm Resp Effort 1 min: Good Cry Reflex Irritability 1 min: Cough/Sneeze/Pulls Away Muscle Tone 1 min: Active Motion Color 1 min: Blue/Pale Resuscitation Effort 1 min: Tactile Stimulation; Oxygen SCORE 1 MIN: 8 Heart Rate 5 min: >100 bpm Resp Effort 5 min: Good Cry Reflex Irritability 5 min: Cough/Sneeze/Pulls Away Muscle Tone 5 min: Active Motion Color 5 min: Body [place], Extremit Blue Resuscitation Effort 5 min: Tactile Stimulation SCORE 5 MIN: 9 INFORMATION BABY A Gestational Age at Delivery: 39.1 Gestational Status: Full Term- 39- 40.6 Weeks Infant Outcome : Liveborn Infant Condition : Stable Infant Sex: Female IDENTIFICATION/MEDS BABY A ID Band Number: [id number] ID Band Location: Right Leg; Left Arm Sensor Applied: Yes Sensor Number: [id number] Sensor Location : Cord Clamp Vitamin K Given : Not Given Erythromycin Given: Not Given WEIGHT/LENGTH BABY A Birthweight (gm): 3440 Infant Weight (lb): 7 Weight (oz): 9 Length (in): 20.00 Length (cm): 50.80 CORD INFORMATION BABY A No. Cord Vessels: 3 Nuchal Cord : N/A Cord Blood Taken: Yes Infant Suction: Mouth; Nose ASSESSMENT BABY A Complications: None Infant Complications- Other: 10ml of fluid suctioned Physical Findings at Delivery: Within Normal Limits Infant Respirations: Appears Normal Office Technologist/ALS Called : Yes Care By: rt Transferred To: Remains with Mother
== END 2019-01-01 18:32 | disposition home or self-care (01) | DRG 807 ==
LOC: OBT 06:35 → L-D 07:14 → OBT 07:25 → PP1 15:05
PROVIDERS: ADMIT Obstetrics & Gynecology; ATTEND Obstetrics & Gynecology
PROC: 10E0XZZ Delivery of Products of Conception, External Approach (ICD-10-PCS; principal; 2018-12-30)
DX: O80 Encounter for full-term uncomplicated delivery (principal); Z37.0 Single live birth; Z3A.39 39 weeks gestation of pregnancy
CPT/HCPCS: 85025; 85610; 85730; 86592; 86850; 86900; 86901; 87340; 99464; G0463; J2590; J7120

== ENCOUNTER 2019-04-20 18:55 | Emergency (ER) | payer MEDICAID ==
[~2019-04-20] VITALS: Ht 152.4 cm; Wt 55.2 kg
[~2019-04-20 18:55] MED LIST changes: +CEPH-443 PO; +IBUP-1542 PO; +ONDA4TAB14 PO; +PHEN-538 PO
[2019-04-20 19:01] VITALS: BP 132/62; PULSE 71; RESP 18; Ht 152.4 cm; Wt 55.2 kg
== END 2019-04-20 22:03 | disposition home or self-care (01) ==
LOC: FTE 18:55
DX: N39.0 Urinary tract infection, site not specified (principal)
CPT/HCPCS: 81001; 81025; 84703; 87086; Z7610; 81003; 99283

== ENCOUNTER 2019-05-25 13:54 | Emergency (ER) | payer MEDICAID ==
[~2019-05-25] VITALS: Ht 152.4 cm; Wt 53.8 kg
[2019-05-25 14:31] VITALS: BP 117/74; PULSE 69; RESP 16; Ht 152.4 cm; Wt 53.8 kg
== END 2019-05-25 17:08 | disposition home or self-care (01) ==
LOC: FTE 13:54
DX: R10.2 Pelvic and perineal pain (principal)
CPT/HCPCS: 76830; 76856; 81001; 81025; 87086; Z7502